=== PATIENT | female | born 1970 | race African-American/Black ===

== ENCOUNTER 2017-01-22 11:33 | Emergency (ER) | payer MEDICAID ==
[~2017-01-22] VITALS: Ht 157.5 cm; Wt 81.6 kg
[2017-01-22 12:38] VITALS: BP 143/92
== END 2017-01-22 13:02 | disposition home or self-care (01) ==
LOC: ER 11:33
DX: S16.1XXA Strain of muscle, fascia and tendon at neck level, initial encounter (principal); S39.012A Strain of muscle, fascia and tendon of lower back, initial encounter; W01.0XXA Fall on same level from slipping, tripping and stumbling without subsequent striking against object, initial encounter; Y93.89 Activity, other specified; Y99.8 Other external cause status; Y92.89 Other specified places as the place of occurrence of the external cause